=== PATIENT | female | born 1980 | race Caucasian/White ===

== ENCOUNTER → 2020-08-22 | Outpatient (CLI) | payer OTHER ==
[~2020-08-22] MED LIST: BACTRIM DS TAB1 EACH PO; BENLYSTA 120 M120 MG INJ; COLACE100 MG PO; EFFEXOR XR 150150 MG PO; KLONOPIN0.5 MG PO; NORCO 7.5-3251 EACH PO; SYNTHROID 100100 MCG PO; TRAZODONE HCL50 MG PO
== END ==
LOC: MAMO 08:00
DX: Z12.31 Encounter for screening mammogram for malignant neoplasm of breast (principal)
CPT/HCPCS: 77063; 77067